=== PATIENT | female | born 1970 | race Two or more races ===

== ENCOUNTER 2022-09-01 11:31 | Emergency (ER) | payer BC ==
[~2022-09-01] VITALS: Ht 165.1 cm; Wt 81.6 kg
[2022-09-01] MEDS ORDERED: SERTRALINE20 MG/1 ML PO (11:45)
[2022-09-01] MEDS ORDERED: ACID REDUCER20 M1 PO (11:46)
[2022-09-01] MEDS ORDERED: MACROBID 100 M100 MG PO ×2 (14:51→14:54)
[2022-09-01] MEDS ORDERED: PYRIDIUM DS200 MG PO (14:54)
== END 2022-09-01 14:58 | disposition home or self-care (01) ==
LOC: ER 11:31
DX: N39.0 Urinary tract infection, site not specified (principal); R30.0 Dysuria; Z87.442 Personal history of urinary calculi; Z88.2 Allergy status to sulfonamides